=== PATIENT | male | born 2000 | race Caucasian/White ===

== ENCOUNTER 2019-12-22 23:58 | Emergency (ER) | payer OTHER, SELFPAY ==
[2019-12-23 00:10] VITALS: BP 146/77; PULSE 75; RESP 17; TEMP 36.7; O2SAT 98; BMI 18.4
--- NOTE | 2019-12-23 00:18 | XR_ITS ---
PROCEDURE: XR HAND LT MIN 3V CLINICAL INDICATION: smashed in door Posttraumatic pain COMPARISON: No exams were available for comparison FINDINGS: No fracture or dislocation. No lytic or blastic change. There is normal mineralization. The joint spaces are well-preserved. No significant degenerative/arthritic changes. No erosive changes evident. Other findings:Soft tissue laceration involving the distal aspect of thumb IMPRESSION: Laceration of the thumb, no acute fracture Dictated by: Martin Bernardo MD 12/23/2019 07:34 Electronically signed by Martin Bernardo MD in [place] 12/23/2019 07:34
--- NOTE | 2019-12-23 00:54 | HMH.EDWNDL ---
ED Disposition Clinical Impression: Hand injury Qualifiers: Encounter type: initial encounter Laterality: left Qualified Code(s): S69.92XA - Unspecified injury of left wrist, hand and finger(s), initial encounter Laceration of thumb Qualifiers: Encounter type: initial encounter Damage to nail status: without damage Foreign body presence: without foreign body Laterality: left Qualified Code(s): S61.012A - Laceration without foreign body of left thumb without damage to nail, initial encounter Disposition: Home, Self-Care Condition on Discharge: Good Instructions: DI for Laceration Repair -- Simple Additional Instructions: suture out 10 days and workman comp forms completed Referrals: Provider,Referral, [Primary Care Provider] - - Critical Care Critical Care Time: No Attestation: On 12/22/19, the high probability of a clinically significant, sudden or life threatening deterioration of the following system(s) required my full and direct attention, intervention and personal management. The time I documented below is in addition to time spent performing reported procedures but includes the following listed in this critical care notation. Medical Decision Making - Medical Records Medical records reviewed: Yes: I reviewed the patient's medical records. - Chago Inquiry Pt receiving controlled substance: No Vital Signs: 12/23/19 00:10 Temperature 98.1 F Temperature Source Oral Pulse Rate [Right Brachial] 75 Respiratory Rate 17 Blood Pressure [Right Arm] 146/77 H Blood Pressure Mean [Right Arm] 100 Blood Pressure Source [Right Arm] Automatic Cuff Blood Pressure Position [Right Arm] Sitting 02 Sat by Pulse Oximetry 98 Oxygen Delivery Method Room Air Orders (Tests/Meds): ED MEDICATIONS Discontinued Medications Generic Name Dose Route Start Last Admin Trade Name Freq PRN Reason Stop Dose Admin Tetanus/Reduced Diphtheria/Acell Pertussis 0.5 ml 12/23/19 00:25 Adacel Tdap 0.5ml Syringe IM 12/23/19 00:26 .ONCE ONE ORDERS Category Date Time Status Hand XR left minimum 3 views [XR hand LT min 3V] Stat Exams 12/23/19 00:18 Ordered - Radiology Data #1 Image(s): Hand Image Reviewed: Yes I reviewed the patient's radiology image Preliminary Findings: No Fracture Seen Wound/Laceration HPI - General Chief Complaint: Extremity Injury, Upper Stated Complaint: AO 12/22/19 2330 laceration to left fingers Time Seen by Provider: 12/23/19 00:25 Mode of Arrival: Ambulatory Source of Information: Patient, Medical Record Limitations: No Limitations Description of Symptoms (Recalled from ER Triage Doc. by RN): Patient reports he smashed his left thumb in a door at work. - History of Present Illness HPI narrative: acute lt hand injury at work with lac lt thumb Onset (ago): hour(s) Extremity Location: Left: hand Place: work Patient tetanus UTD: No Context: accidental Associated symptoms: pain - Related Data Allergies Allergy/AdvReac Type Severity Reaction Status Date / Time No Known Allergies Allergy Verified 09/26/19 16:01 [facility] History - Hepatitis A Screen Drug use history?: No High risk sexual behaviors?: No History of sexually transmitted infection?: No Currently employed?: No Childcare worker?: No Do you have indoor plumbing?: Yes Do you have electricity?: Yes Attestation statement:: This patient has been screened for Hepatitis A risk factors. I have reviewed the patient's past medical history: Yes Laterality Cases: Bilateral: Tonsillectomy Fractures: Yes (FOOT) - Social History Alcohol Intake: never Occupational Status: employed ROS Obtained: Yes All systems reviewed & no additional complaints - Constitutional Constitutional: Denies fever(s) - Eyes Eyes: Denies change in vision - ENT Ears, Nose, Mouth, and Throat: Denies sore throat - Cardiovascular Cardiovascular: Denies chest pain - Respiratory Respiratory: No cough - Genitou
[2019-12-23 01:05] VITALS: BP 133/67; PULSE 78; RESP 16; TEMP 36.7; O2SAT 99
== END 2019-12-23 01:14 | disposition home or self-care (01) ==
PROVIDERS: Emergency Provider Emergency Medicine
DX: S61.012A Laceration without foreign body of left thumb without damage to nail, initial encounter (principal); W23.1XXA Caught, crushed, jammed, or pinched between stationary objects, initial encounter; Y92.69 Other specified industrial and construction area as the place of occurrence of the external cause; Y99.0 Civilian activity done for income or pay; Z23 Encounter for immunization
CPT/HCPCS: 12001; 73130; 90471; 90715; 99282

== ENCOUNTER 2021-05-26 09:23 | Emergency (ER) | payer SELFPAY ==
[2021-05-26 09:25] VITALS: BP 128/76; PULSE 73; RESP 18; TEMP 36.8; O2SAT 99; BMI 19.2
--- NOTE | 2021-05-26 10:05 | HMH.EDUTC ---
[facility] Disposition Clinical Impression: Exposure to COVID-19 virus Disposition: Home, Self-Care Condition on Discharge: Good Instructions: Preventing the Spread of Coronavirus Discharge Instructions Additional Instructions: Please continue to isolate for the remainder of 7 days from exposure. If negative, can return to work on Friday. Referrals: Provider,Referral, [Primary Care Provider] - Time of Disposition: 10:07 Medical Decision Making - Chago Inquiry Pt receiving controlled substance: No Vital Signs: 05/26/21 09:25 Temperature 98.2 F Temperature Source Oral Pulse Rate [Right Brachial] 73 Respiratory Rate 18 Blood Pressure [Right Arm] 128/76 Blood Pressure Mean [Right Arm] 93 Blood Pressure Source [Right Arm] Automatic Cuff Blood Pressure Position [Right Arm] Sitting 02 Sat by Pulse Oximetry 99 Oxygen Delivery Method Room Air Orders (Tests/Meds): ORDERS Category Date Time Status Covid-19 Nasal PCR ([facility]) Routine Lab 05/26/21 10:03 Ordered [facility] HPI - General Stated complaint: covid test/exposure Time Seen by Provider: 05/26/21 10:05 Mode of Arrival: Ambulatory Source of Information: Patient Limitations: No Limitations Description of Symptoms (Recalled from Triage Doc. by RN): COVID TEST D/T EXPOSURE ON FRIDAY HEENT Symptoms (Recalled from RN notes): No Resp Symptoms (Recalled from RN notes): No Skin Symptoms (Recalled from RN notes): No MS Symptoms (Recalled from RN notes): No Functional Status (Recalled from RN notes): WNL - History of Present Illness Provider Complaint: COVID19 exposure 5 days ago. No symptoms at this time. Onset (ago): day(s) (5) Relieving factors: none Exacerbating factors: none Associated symptoms: denies other symptoms Treatments prior to arrival: none - Related Data Allergies Allergy/AdvReac Type Severity Reaction Status Date / Time No Known Allergies Allergy Verified 09/26/19 16:01 - Worker's Comp Is this a Worker's Comp case?: No [facility] History - Hepatitis A Screen Drug use history?: No High risk sexual behaviors?: No History of sexually transmitted infection?: No Currently employed?: No Childcare worker?: No Do you have indoor plumbing?: Yes Do you have electricity?: Yes Attestation statement:: This patient has been screened for Hepatitis A risk factors. I have reviewed the patient's past medical history: Yes Laterality Cases: Bilateral: Tonsillectomy Fractures: Yes (FOOT) - Social History Alcohol Intake: never Occupational Status: employed ROS Obtained: Yes All systems reviewed & no additional complaints Physical Exam - General General appearance: alert, in no apparent distress - Head Head exam: atraumatic, normocephalic - Eye Eye exam: Present: PERRL - ENT ENT exam: Present: normal oropharynx, TM's normal bilaterally - Neck Neck exam: Present: normal inspection - Chest Chest inspection: Present: normal inspection, symmetric chest wall rise - Respiratory Respiratory exam: Present: normal lung sounds bilaterally - Cardiovascular Cardiovascular exam: Present: regular rate, normal rhythm - Neurological Exam Neurological exam: Present: alert, oriented X3 - Psychiatric Psychiatric exam: Present: normal affect, normal mood - Skin Skin exam: Present: warm, dry, intact
[2021-05-26 10:08] VITALS: BP 128/76; PULSE 73; RESP 18; TEMP 36.8; O2SAT 99
== END 2021-05-26 10:17 | disposition home or self-care (01) ==
PROVIDERS: Emergency Provider Physician Assistant
DX: Z20.822 Contact with and (suspected) exposure to COVID-19 (principal)
CPT/HCPCS: 99202; C9803; G0463; U0003; U0005

== ENCOUNTER → 2021-08-21 09:59 | Outpatient (CLI) | payer OTHER, SELFPAY | PROVIDERS: Visit Provider Nurse Practitioner | DX: Z20.822 Contact with and (suspected) exposure to COVID-19 (principal) | CPT/HCPCS: C9803; U0003; U0005 ==

== ENCOUNTER → 2021-10-16 10:57 | Outpatient (CLI) | payer OTHER, SELFPAY ==
[2021-10-17 07:05] LABS: Covid-19 Nasal PCR Sendout Lex POSITIVE
== END ==
PROVIDERS: Visit Provider Nurse Practitioner
DX: U07.1 COVID-19 (principal)
CPT/HCPCS: C9803; U0004; U0005

== ENCOUNTER 2022-12-01 03:06 | Emergency (ER) | payer BC, SELFPAY ==
[2022-12-01 03:15] VITALS: BP 164/82; PULSE 67; RESP 16; TEMP 36.7; O2SAT 100; BMI 19.8
--- NOTE | 2022-12-01 03:23 | PC.NURSE ---
Visual acuity performed. Right eye 20/20 Left eye 20/13
--- NOTE | 2022-12-01 03:34 | HMH.EDEYEP ---
Discharge Plan Disposition Patient Disposition: Home, Self-Care Chief Complaint: Eye Problems Referrals Follow up/Referrals: Provider,Referral, [Primary Care Provider] - See instructions Clinical Impressions Clinical Impression: Acute foreign body of right cornea Instructions Patient Instructions: DI for Corneal Foreign Body-Eye Discharge ED Provider: Tayler (ED)Bradley Eye Problem HPI General Chief complaint: Eye Problems Stated complaint: Right eye pain; possible metal fragment Time Seen by Provider: 12/01/22 03:34 Mode of Arrival: Ambulatory Source of Information: Patient and Medical Record Limitations: No Limitations Description of Symptoms (Recalled from ER Triage Doc. by RN): Pt reports grinding some metal friday morning and had some debris blow into his right eye. He was able to get some relief friday after using a eye flush station at work. Tonight at work his right eye became irritated once again. History of Present Illness HPI Narrative: grinding at home and metal in rt eye and now with inc pain in rt eye - no contacts not workman comp chief complaint: foreign body Onset (ago): hour(s) Duration: intermittent Location: right eye Eye Symptoms: foreign body sensation and photophobia Place: home Mechanism: occurred while hammering/grinding Severity: moderate Associated symptoms: none Related Data Patient tetanus UTD: Yes Allergies Allergy/AdvReac Type Severity Reaction Status Date / Time No Known Allergies Allergy Verified 09/26/19 16:01 [facility] Disclaimer: The information contained in this section may have been updated after the patient was seen, as this information can be updated by other users. Social History Smoking Status: Never smoker alcohol intake: never current occupational status: employed Travel in the last 8 weeks: None ROS Obtained: Yes All systems reviewed & no additional complaints except as documented Physical Exam General General appearance: alert Head Head exam: normocephalic Eye Eye exam: Present PERRL, EOMI and other (rt eye with reddness and fb at 0800 ) ENT ENT exam: Present mucous membranes dry Neck Neck exam: Present full ROM and trachea midline Respiratory Respiratory exam: Absent respiratory distress Cardiovascular Cardiovascular exam: Present regular rate Abdominal Exam Abdominal exam: Present soft Extremities Exam Extremities exam: Present full ROM Neurological Exam Neurological exam: Present alert, oriented X3 and CN II-XII intact; Absent motor sensory deficit Psychiatric Psychiatric exam: Present normal affect Skin Skin exam: Absent rash Medical Decision Making Medical Records Medical records reviewed: Yes I reviewed the patient's medical records. Chago Inquiry Pt receiving controlled substance: No Vital Signs: 12/01/22 03:15 Temperature 98.1 F Temperature Source Oral Pulse Rate [Right Radial] 67 Respiratory Rate 16 Blood Pressure [Right Arm] 164/82 H Blood Pressure Mean [Right Arm] 109 Blood Pressure Source [Right Arm] Automatic Cuff Blood Pressure Position [Right Arm] Sitting 02 Sat by Pulse Oximetry 100 Oxygen Delivery Method Room Air Lab Data Lab results reviewed: Yes I reviewed the patient's lab results. Orders (Tests/Meds): ED MEDICATIONS Generic Name Dose Route Start Last Admin Trade Name Freq PRN Reason Stop Dose Admin Sulfacetamide Sodium 15 ml 12/01/22 03:32 Sulfacetamide 10% Opth Soln 15ml OP 12/01/22 03:33 ONCE ONE Tetracaine HCl 1 ml 12/01/22 03:31 Tetracaine 0.5% Opth Sarah 15ml OP 12/01/22 03:32 ONCE ONE Medical Decision Narrative: retained fb and unable to remove and will refer to dr yoo office Procedures Eye Exam/FB Removal Location: eye (R) Topical anesthetic used: tetracaine Fluorescein Stick(s) used: No Time Out performed: Yes Procedure performed under: direct visualization with magnification Foreign body: metal Evidence of corneal penetrat
[2022-12-01 03:42] VITALS: BP 158/81; PULSE 61; RESP 16; TEMP 36.7; O2SAT 100
== END 2022-12-01 03:53 | disposition home or self-care (01) ==
PROVIDERS: Emergency Provider Emergency Medicine
DX: T15.01XA Foreign body in cornea, right eye, initial encounter (principal)
CPT/HCPCS: 99283; 99284

== ENCOUNTER 2023-10-19 18:34 | Emergency (ER) | payer BC, SELFPAY ==
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
[2023-10-19 18:42] VITALS: BP 151/92; PULSE 78; RESP 14; TEMP 36.8; O2SAT 100; BMI 21.1
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
[2023-10-19 19:00] VITALS: BP 126/86; PULSE 79; O2SAT 99
[2023-10-19] MEDS: HYDROCODONE/APAP 5/325 MG TABLET 1 TAB PO (19:14)
[2023-10-19] MEDS: ACETAMINOPHEN 500MG TAB 500 MG PO (19:14)
[2023-10-19 19:55] VITALS: BP 126/86; PULSE 90; RESP 18; TEMP 36.8; O2SAT 99
== END 2023-10-19 19:57 | disposition home or self-care (01) ==
PROVIDERS: Emergency Provider Student in an Organized Health Care Education/Training Program
DX: S62.346A Nondisplaced fracture of base of fifth metacarpal bone, right hand, initial encounter for closed fracture (principal); Y04.2XXA Assault by strike against or bumped into by another person, initial encounter
CPT/HCPCS: 29125; 73130; 73200; 99284

== ENCOUNTER 2023-11-13 13:03 | Outpatient (CLI) | payer BC, SELFPAY ==
--- NOTE | 2023-11-13 13:06 | XR_ITS ---
FINAL REPORT CLINICAL HISTORY: Rt Hand fx COMPARISON: None available FINDINGS: RIGHT HAND: 3 views of the right hand were obtained. No prior radiograph available for comparison. There is a comminuted fracture of the proximal fifth metacarpal with no significant callus formation. Visualized joint spaces are normally aligned. There is dorsal medial hand soft tissue swelling. IMPRESSION: Comminuted fracture proximal fifth metacarpal without significant callus formation. Reviewed, Interpreted and Dictated by Magdy Linn III, MD Transcribed by Navya Morton Authenticated and [facility]
== END 2023-11-13 23:59 ==
LOC: RAD 13:03
PROVIDERS: Visit Provider Orthopaedic Surgery
DX: S62.346A Nondisplaced fracture of base of fifth metacarpal bone, right hand, initial encounter for closed fracture (principal)
CPT/HCPCS: 73130

== ENCOUNTER 2023-12-04 13:20 | Outpatient (CLI) | payer BC, SELFPAY ==
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
== END 2023-12-04 23:59 ==
LOC: RAD 13:21
PROVIDERS: Visit Provider Physician Assistant Surgical
DX: S69.92XA Unspecified injury of left wrist, hand and finger(s), initial encounter (principal)
CPT/HCPCS: 73130